=== PATIENT | female | born 1945 | race Caucasian/White ===

== ENCOUNTER 2018-08-02 01:36 | Emergency (ER) | payer OTHER ==
[~2018-08-02] VITALS: Ht 157.5 cm; Wt 68.0 kg
[2018-08-02 02:25] LABS: Basophils # (auto) 0.1 uL; Eosinophils # (auto) 0.2 uL; Hematocrit 46.9 % (36.0-46.0); Hemoglobin 15.1 g/dL (12.2-16.2); Lymphocytes # (auto) 2.3 uL; Monocytes # (auto) 0.6 uL; Nucleated Red Blood Cells % 0.1 %; Red Blood Cells 5.61 10^6/uL (4.0-5.20)
[2018-08-02 02:27] LABS: Mean Corpuscular Hemoglobin 26.9 pg (28.0-32.0); Mean Corpuscular Hgb Conc. 32.2 g/dL (32.0-36.0); Mean Corpuscular Volume 83.7 fL (80.0-100.0); Monocytes % (auto) 9.7 % (0.0-12.0); Neutrophils # (auto) 3.2 uL; Neutrophils % (auto) 50.3 % (37.0-80.0); Platelet Count (auto) 256 10^3/uL (140-450); Red Cell Distribution Width 15.2 % (11.8-14.3); White Blood Cell 6.4 10^3/uL (4.4-10.8)
[2018-08-02 02:42] LABS: Albumin 3.2 g/dL (3.4-5.0); BUN/Creatinine Ratio 17.9; Calcium 8.6 mg/dL (8.5-10.1); Magnesium 2.4 mg/dL (1.6-2.6)
[2018-08-02 02:58] LABS: Bilirubin, Total 1.4 mg/dL (0.2-1.0)
[2018-08-02] MEDS ORDERED: CARV12.544 PO (05:57)
[2018-08-02] MEDS ORDERED: SITA100T7 PO (05:57)
[2018-08-02] MEDS ORDERED: FURO20TA3 PO (05:57)
[2018-08-02] MEDS ORDERED: LISI40TA PO (05:57)
[2018-08-02 07:41] VITALS: BP 112/65
[2018-08-02] MEDS ORDERED: ENOXAPARIN SOD 80 MG/0.8ML SYRINGE SC ONE (08:00)
[2018-08-02] MEDS ORDERED: FUROSEMIDE 40 MG/4 ML VIAL IV ONE (08:00)
[2018-08-02] MEDS ORDERED: TEMAZEPAM 15 MG CAP PO PRN (08:30)
[2018-08-02] MEDS ORDERED: LORazepam 0.5 MG TAB PO PRN (08:30)
[2018-08-02] MEDS ORDERED: MORPHINE SULFATE 4 MG/ML SYR/VIAL IV PRN ×3 (08:30)
[2018-08-02] MEDS ORDERED: PROMETHAZINE HCL 25 MG/ML 1ML IV PRN (08:30)
[2018-08-02] MEDS ORDERED: NITROGLYCERIN 0.4 MG SL TAB SL PRN (08:30)
[2018-08-02] MEDS ORDERED: PANTOPRAZOLE 40 MG TAB PO SCH (10:00)
[2018-08-02] MEDS ORDERED: FUROSEMIDE 40 MG/4 ML VIAL IV SCH (10:00)
[2018-08-02] MEDS ORDERED: ENOXAPARIN SOD 30 MG/0.3 ML SYRINGE SC SCH (10:00)
[2018-08-02] MEDS ORDERED: ENALAPRIL MALEATE 2.5 MG TAB PO SCH (10:00)
[2018-08-02] MEDS ORDERED: CARVEDILOL 3.125 MG TAB PO SCH (10:00)
[2018-08-02] MEDS ORDERED: NITROGLYCERIN 0.2MG/HR TOPICAL PATCH TD SCH (10:00)
[2018-08-02] MEDS ORDERED: ASPirin 81 mg TAB PO ONE (10:00)
[2018-08-02] MEDS ORDERED: POTASSIUM CHL 20 Meq TABLET PO SCH (10:00)
[2018-08-02] MEDS ORDERED: SODIUM CHLOR 0.9% PF (SALINE LOCK) 10ML VIAL/SYR IV SCH (14:00)
[2018-08-03] MEDS ORDERED: ASPirin 81 mg TAB PO SCH (10:00)
== END 2018-08-02 12:17 | disposition left against medical advice (07) ==
LOC: ER 01:38
DX: I21.4 Non-ST elevation (NSTEMI) myocardial infarction (principal); I11.0 Hypertensive heart disease with heart failure; I50.9 Heart failure, unspecified; E11.9 Type 2 diabetes mellitus without complications
CPT/HCPCS: 36415; 71045; 80053; 82962; 83735; 83880; 84484; 85025; 93005

== ENCOUNTER 2019-01-17 07:03 | Emergency (ER) | payer OTHER ==
[~2019-01-17 07:03] MED LIST: ASPI81CH49; CARV12.544 PO; FURO40TA4 PO; INSLANTI SC; LISI40TA PO; POTA1TAB4
[2019-01-17 07:08] VITALS: BP 0/0
== END 2019-01-17 15:01 | disposition expired ==
LOC: EDBD 07:03 → ER 07:04
DX: I46.9 Cardiac arrest, cause unspecified (principal); E11.9 Type 2 diabetes mellitus without complications; I50.9 Heart failure, unspecified; Z79.4 Long term (current) use of insulin; Z79.82 Long term (current) use of aspirin; Z79.899 Other long term (current) drug therapy
CPT/HCPCS: 92950